=== PATIENT | female | born 2000 | race Caucasian/White ===

== ENCOUNTER 2021-05-31 02:02 | Emergency (ER) | payer BC ==
[~2021-05-31] VITALS: Ht 160 cm; Wt 54.0 kg
[2021-05-31 02:57] LABS: *BILIRUBIN,URIN NEGATIVE (NEGATIVE); *BLOOD, URINE 2+ (NEGATIVE); *CLARITY,URINE CLOUDY (CLEAR); *COLOR,URINE YELLOW (YELLOW); *KETONES,URINE 2+ (NEGATIVE); *UROBILINOGEN,URINE 0.2 E.U./dl (NORMAL); LEUKOCYTE ESTERASE ,URINE 2+ (NEGATIVE); NITRITE, URINE POSITIVE (NEGATIVE); PH,URINE 5.5 (5.0-8.0); UGLUCOSE NEGATIVE (NEGATIVE)
[2021-05-31] MEDS ORDERED: HYDROMORPHONE 1 MG/1 ML DISP.SYRIN ONE (02:59)
[2021-05-31 03:00] LABS: *URINE HCG, QUAL NEGATIVE (NEGATIVE)
[2021-05-31] MEDS ORDERED: ONDANSETRON 4 MG/2 ML VIAL ONE (03:00)
[2021-05-31 03:02] LABS: HEMATOCRIT 42.6 % (31.2-41.9); MEAN CORPUSCULAR HEMOGLOBIN 30.3 uug (24.7-32.8); MEAN CORPUSCULAR VOLUME 89.7 fL (75.5-95.3); PLATELET COUNT (AUTO) 236 K/uL (179-408)
[2021-05-31 03:03] LABS: CREATININE 0.8 mg/dL (0.6-1.3); POTASSIUM 3.6 mmol/L (3.5-5.1)
[2021-05-31] MEDS: HYDROMORPHONE 1 MG/1 ML DISP.SYRIN IV ONE (03:05)
[2021-05-31] MEDS: ONDANSETRON 4 MG/2 ML VIAL IV ONE (03:08)
[2021-05-31 03:09] LABS: BILIRUBIN,DIRECT 0.2 mg/dL (0.0-0.2); BILIRUBIN,TOTAL 0.6 mg/dL (0.2-1.0); TOTAL PROTEIN, SERUM 9.3 g/dL (6.4-8.2)
[2021-05-31 03:15] LABS: BACTERIA,URINE MANY /HPF (NONE SEEN); RBC,URINE 20-50 /HPF (0-3); SQUAMOUS EPITHELIAL CELL,UR MODERATE /HPF (NONE SEEN); WBC,URINE TNTC /HPF (0-3)
[2021-05-31] MEDS ORDERED: IOHEXOL 300MG/ML 100 ML INFUS..BTL ONE (03:45)
[2021-05-31] MEDS ORDERED: IV NORMAL SALINE 250 ML IV ONE (03:45)
[2021-05-31] MEDS ORDERED: SWABABLE VALVE TRANSFER SET EA MC ONE (03:45)
[2021-05-31] MEDS ORDERED: CEFTRIAXONE /D5W 50ML IVPB **ER PYXIS IV ONE ×2 (04:07→04:15)
[2021-05-31] MEDS: CEFTRIAXONE 1 G in IV DEXTROSE 5% 50 ML IV ONE (04:26)
--- NOTE | 2021-05-31 04:39 | NUR ---
CALLED JENNYFER, [place] [facility].
[2021-05-31] MEDS ORDERED: HYDR-4209 PO (04:59)
[2021-05-31] MEDS ORDERED: ONDA4TAB5 PO (04:59)
[2021-05-31] MEDS: NITROFURANTOIN/NITROFURAN MAC 100 MG CAPSULE PO ONE (05:05)
[2021-05-31] MEDS ORDERED: NITROFURANTOIN/NITROFURAN MAC 100 MG CAPSULE PO ONE (05:11)
[2021-05-31] MEDS ORDERED: NITR-84 PO (05:12)
--- NOTE | 2021-05-31 05:18 | NUR ---
IV removed. Catheter intact and site benign. Pressure and 4x4 gauze applied to site. No bleeding noted.
[2021-05-31 05:19] VITALS: BP 110/72
--- NOTE | 2021-05-31 05:19 | NUR ---
Patient discharged to home in stable condition. Her family is driving her home.. Written and verbal after care instructions given. Patient verbalizes understanding of instructions. Stressed follow up or return to ER for worsening s/s.
== END 2021-05-31 05:20 | disposition home or self-care (01) ==
LOC: ER 02:09
DX: N39.0 Urinary tract infection, site not specified (principal); N83.201 Unspecified ovarian cyst, right side; Z20.822 Contact with and (suspected) exposure to COVID-19
CPT/HCPCS: 36415; 74177; 76856; 80048; 80076; 81001; 83690; 84703; 85025; 85730; 87077; 87086; 87186; 87426; 96365; 96375; 99285; J0696 ×2; J1170; J2405; Q9967; A4663; J7030; J7050